=== PATIENT | female | born 2000 | race Caucasian/White ===

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

== ENCOUNTER 2021-12-29 18:56 | Emergency (ER) | payer OTHER ==
--- NOTE | 2021-12-29 19:02 | ERPHSYRPT ---
- History of Present Illness Time Seen by Provider: 12/29/21 19:02 Source: patient Exam Limitations: no limitations Physician History: This is a 21-year-old white female who [place] out [place] picking at weeds and then noticing in the next 1 to 2 days that she has had itchy skin lesions on her arms and legs. They were exposed to the elements while running through the [place]. Patient did not ingest any wheat. She did not see any types of bugs on her. However she has multiple skin lesions that are itching that she did scratch and some are now red and tender. She is not wheezing and denies shortness of breath. Timing/Duration: day(s) (Last couple of days) Quality: itchy Severity: moderate Location: extremities Possible Causes: other (Exposed to elements in a [place]) Allergies/Adverse Reactions: No Known Drug Allergies Allergy (Unverified 09/26/17 22:49) Travel Risk - International Travel Have you traveled outside of the country in past 3 weeks: No - Coronavirus Screening Are you exhibiting any of the following symptoms?: No Close contact with a COVID-19 positive Pt in past 14-21 Days: No - Review of Systems Constitutional: No Symptoms Eyes: No Symptoms Ears, Nose, & Throat: No Symptoms Respiratory: No Symptoms Cardiac: No Symptoms Abdominal/Gastrointestinal: No Symptoms Genitourinary Symptoms: No Symptoms Musculoskeletal: No Symptoms Skin: Cellulitis (Few small areas of cellulitis around eschars were patient was scratching her rash lesions), Rash Neurological: No Symptoms Psychological: No Symptoms Endocrine: No Symptoms Hematologic/Lymphatic: No Symptoms Immunological/Allergic: No Symptoms All Other Systems: Reviewed and Negative - Past Medical History Pertinent Past Medical History: Yes - Past Surgical History Past Surgical History: No - Social History Smoking Status: Former smoker Exposure to second hand smoke: No Drug Use: none Patient Lives Alone: No - Nursing Vital Signs Nursing Vital Signs: Initial Vital Signs Temperature 97.4 F 12/29/21 19:05 Pulse Rate 91 H 12/29/21 19:05 Respiratory Rate 18 12/29/21 19:05 Blood Pressure 125/83 12/29/21 19:05 O2 Sat by Pulse Oximetry 100 12/29/21 19:05 Pain Scale Pain Intensity 0 - Physical Exam General Appearance: no apparent distress, alert, anxiety Eye Exam: PERRL/EOMI, eyes nml inspection Ears, Nose, Throat Exam: normal ENT inspection, moist mucous membranes Neck Exam: normal inspection, non-tender, supple, full range of motion Respiratory Exam: normal breath sounds, lungs clear, airway intact, No chest tenderness, No respiratory distress Cardiovascular Exam: regular rate/rhythm, normal heart sounds, normal peripheral pulses Gastrointestinal/Abdomen Exam: No tenderness Pelvic Exam: not done Rectal Exam: not done Extremity Exam: normal inspection, normal range of motion, pelvis stable Neurologic Exam: alert, oriented x 3, cooperative, pipe layer helper II-XII nml as tested, normal mood/affect, nml cerebellar function, nml station & gait, sensation nml Skin Exam: other (Multiple distinct lesions of the skin bilateral upper and lower extremities. There is obvious excoriation sites and a few of these eschars have mild surrounding cellulitis present. There is no obvious abscess.) Lymphatic Exam: adenopathy SpO2 Interpretation: normal O2 Delivery: Room Air - Course Nursing assessment & vital signs reviewed: Yes Ordered Tests: Medication Summary Discontinued Medications Generic Name Dose Route Start Last Admin Trade Name Josue PRN Reason Stop Dose Admin Doxycycline Hyclate 100 mg 12/29/21 19:28 12/29/21 19:35 Doxycycline Hyclate 100 Mg Tablet PO 12/29/21 19:29 100 mg STAT ONE Administration Doxycycline Hyclate Confirm 12/29/21 19:33 Doxycycline Hyclate 100 Mg Tablet Administered 12/29/21 19:34 Dose 100 mg .ROUTE .STK-MED ONE Prednisone 20 mg 12/29/21 19:30 12/29/21 19:35 Prednisone 20 Mg Tablet PO 12/29/21 19:31 20 mg STAT ONE Administration Prednisone Confirm 12/29/21 19:33 Prednisone 20 Mg Tablet Administered 12/29/21 19:34 Dose 20 mg .ROUTE .STK-MED ONE - Progress Progress: unchanged Counseled pt/family regarding: diagnosis, need for follow-up - Departure Departure Disposition: Home Clinical Impression: Contact dermatitis Condition: Stable Critical Care Time: No Additional Instructions: Keep skin clean daily with soap and water daily. Follow up with primary provider for further management. Take medication as prescribed. Use the hydroxyzine prescription for control of itching instead of Benadryl. Prescriptions: Hydroxyzine HCl 25 mg [Atarax 25 mg] 25 mg PO Q6H PRN #12 tablet PRN Reason: Itching Prednisone 10 mg [Deltasone 10 mg] 10 mg PO TID #12 tablet Doxycycline Hyclate 100 mg [Vibramycin 100 MG] 100 mg PO BID #14 tab
[2021-12-29] MEDS ORDERED: Vibramycin 100 MG PO ONE (19:28)
[2021-12-29] MEDS ORDERED: DELTASONE 20 MG PO ONE (19:30)
[2021-12-29] MEDS ORDERED: DELTASONE 20 MG ONE (19:33)
[2021-12-29] MEDS ORDERED: Vibramycin 100 MG ONE (19:33)
[2021-12-29 20:03] VITALS: BP 126/83; PULSE 90; O2SAT 98
== END 2021-12-29 20:04 | disposition home or self-care (01) ==
LOC: ED 18:56
DX: L25.9 Unspecified contact dermatitis, unspecified cause (principal); Z79.52 Long term (current) use of systemic steroids
CPT/HCPCS: 99282; A9270-GY

== ENCOUNTER 2022-08-27 11:59 | Inpatient (IN) | payer OTHER ==
[2022-08-27 12:36] LABS: Absolute Neutrophil Ct (ANC) 8.54 x10^3/uL (1.4-6.9); BASOPHIL % 0.4 % (0.0-0.4); Basophil (Absolute #) 0.05 x10^3/uL (0-0.4); Eosinophil % 0.6 % (0.00-5.0); Eosinophil (Absolute #) 0.07 x10^3/uL (0-0.5); IMMATURE GRAN # 0.12 x10^3u/L (0.00-0.03); Lymphocyte (Absolute #) 2.73 x10^3/uL (1.0-4.6); Mean Cell Volume 90.9 fL (78-100); Mean Corpuscular Hgb Concent. 34.1 g/dL (32-36); Mean Platelet Volume 10.6 fL (7.5-11.0); Monocyte (Absolute #) 0.37 x10^3/uL (0.0-1.3); Monocytes % 3.1 % (0.0-12.0); Neutrophil % 71.9 % (36.0-66.0); Platelet Count 303 x10^3/uL (150-450); Red Blood Count 4.51 x10^6/uL (4.1-5.4); Red Cell Distribution Width 12.8 % (11.5-14.0); White Blood Count 11.9 x10^3/uL (4.0-10.5)
[2022-08-27] MEDS ORDERED: Sodium Chloride 100ML MINI-BAG PLUS 100 ML IV ONE (12:36)
[2022-08-27] MEDS ORDERED: Lactated Ringers 1,000 ML IV ONE ×2 (12:36→13:04)
[2022-08-27] MEDS ORDERED: OMNIPEN 2 GM*** 2 G in Sodium Chloride 100ML MINI-BAG PLUS 100 ML IV SCH (12:45)
[2022-08-27 12:54] LABS: ALBUMIN 3.2 g/dL (3.5-5.0); ALKALINE PHOSPHATASE 149 U/L (38-126); ANION GAP 12.9 MEQ/L (5-15); BLOOD UREA NITROGEN 12 mg/dL (7-17); CHLORIDE 106 mmol/L (98-107); Calcium 8.4 mg/dL (8.4-10.2); Carbon Dioxide 19 mmol/L (22-30); Creatinine 1 0.43 mg/dL (0.52-1.04); EST GLOMERULAR FILTRATION RATE > 60.0 ML/MIN; Glucose 80 mg/dL (74-106); Potassium 4.3 mmol/L (3.5-5.1); SGOT/AST 28 U/L (14-36); SGPT/ALT 19 U/L (0-35); SODIUM 133 mmol/L (137-145); Total Protein 6.9 g/dL (6.3-8.2)
[2022-08-27] MEDS ORDERED: Ephedrine Sulfate 50 MG/ML IV PRN (13:04)
[2022-08-27] MEDS ORDERED: OMNIPEN 2 GM*** 2 G in Sodium Chloride 100ML MINI-BAG PLUS 100 ML IV ONE (13:04)
[2022-08-27] MEDS ORDERED: XYLOCAINE 1% HCL 20 ML MDV IJ PRN (13:04)
[2022-08-27] MEDS ORDERED: FENTANYL 2 MCG-BUPIV 0.125%-NS 250 ML Epidur 250 ML EPIDURAL SCH (13:15)
[2022-08-27] MEDS ORDERED: Lactated Ringers 1,000 ML IV SCH (13:30)
[2022-08-27] MEDS ORDERED: PITOCIN 30 UNITS/ LR 500 ML 30 UNITS/500 ML PLAST..BAG IV SCH (13:30)
[2022-08-27 13:58] LABS: Amphetamine,Urine NEGATIVE (NEGATIVE); Barbiturate,Urine NEGATIVE (NEGATIVE); Benzodiazepine,Urine NEGATIVE (NEGATIVE); Cocaine,Urine NEGATIVE (NEGATIVE); Methadone,Urine NEGATIVE (NEGATIVE); Opiate,Urine NEGATIVE (NEGATIVE); PCP,Urine NEGATIVE (NEGATIVE)
[2022-08-27 14:09] LABS: ABO TYPING O; RH TYPING NEGATIVE; THC,Urine POSITIVE (NEGATIVE)
[2022-08-27 14:11] LABS: Antibody Screen POSITIVE (NEGATIVE)
[2022-08-27] MEDS ORDERED: BRETHINE 1 MG/ML SQ PRN (15:10)
[2022-08-27] MEDS: PITOCIN 30 UNITS/ LR 500 ML 30 UNITS/500 ML PLAST..BAG IV SCH ×2 (15:16→15:35)
[2022-08-27] MEDS ORDERED: OMNIPEN 1 GM*** 1 GM in Sodium Chloride 100ML MINI-BAG PLUS 100 ML IV SCH (17:15)
[2022-08-27] MEDS ORDERED: Mylicon 80MG PO PRN (20:15)
[2022-08-27] MEDS ORDERED: LANSINOH 40 GM TOP PRN (20:15)
[2022-08-27] MEDS ORDERED: Dermoplast Spray TP PRN (20:15)
[2022-08-27] MEDS ORDERED: TUCKS TP PRN (20:15)
[2022-08-27] MEDS ORDERED: Zofran 4 MG/2 ML VIAL IV PRN (20:21)
[2022-08-27] MEDS: TYLENOL EXTRA STRENGTH 500 MG PO PRN (21:09)
[2022-08-27] MEDS ORDERED: Docusate Sodium 100 MG PO SCH (22:00)
[2022-08-28] MEDS: MOTRIN 400 MG PO PRN ×2 (02:09→15:41)
[2022-08-28] MEDS: TYLENOL EXTRA STRENGTH 500 MG PO PRN ×2 (04:05→13:46)
[2022-08-28 04:53] LABS: Absolute Neutrophil Ct (ANC) 6.59 x10^3/uL (1.4-6.9); BASOPHIL % 0.4 % (0.0-0.4); Basophil (Absolute #) 0.04 x10^3/uL (0-0.4); Eosinophil % 1.4 % (0.00-5.0); Eosinophil (Absolute #) 0.15 x10^3/uL (0-0.5); Hematocrit 32.8 % (35-47); Hemoglobin 11.5 g/dL (12.0-16.0); IMMATURE GRAN # 0.08 x10^3u/L (0.00-0.03); IMMATURE GRAN % 0.7 % (0.00-0.4); Lymphocytes % 30.9 % (24.0-44.0); Mean Cell Volume 89.4 fL (78-100); Mean Corpuscular Hemoglobin 31.3 pg (26-32); Mean Corpuscular Hgb Concent. 35.1 g/dL (32-36); Mean Platelet Volume 10.1 fL (7.5-11.0); Monocyte (Absolute #) 0.74 x10^3/uL (0.0-1.3); Monocytes % 6.7 % (0.0-12.0); Neutrophil % 59.9 % (36.0-66.0); Platelet Count 235 x10^3/uL (150-450); Red Blood Count 3.67 x10^6/uL (4.1-5.4); Red Cell Distribution Width 12.8 % (11.5-14.0)
[2022-08-28] MEDS ORDERED: ZOLOFT 50 MG TABLET PO SCH (10:00)
[2022-08-28] MEDS ORDERED: FERREX 150 PO SCH (10:00)
--- NOTE | 2022-08-28 10:04 | PCM.NOTE ---
Date and Time: 08/28/22 1002 Subjective Assessment: ppd 1 sp pt resting in bed and doing well ambulating and tolerating diet vss afebrile abd; soft uterus; firm lochia; mild hgb; 11 a/p sp ppd 1 dc home tomorrow should fu in office in 3wks OBJECTIVE DATA Vital Signs: Vital Signs - 24 hr Temp Pulse Resp BP BP Pulse Ox 08/28/22 02:00 98.0 F 57 L 16 108/51 98 08/27/22 20:00 97.9 F 53 L 16 132/67 99 08/27/22 18:39 16 123/52 98 08/27/22 17:30 55 L 20 112/57 98 08/27/22 17:15 57 L 18 121/57 100 08/27/22 17:00 63 16 121/58 99 08/27/22 16:39 59 L 20 126/57 99 08/27/22 16:00 97.9 F 55 L 20 112/57 98 08/27/22 15:25 97.9 F 56 L 20 127/73 99 08/27/22 15:00 97.9 F 61 20 129/61 98 08/27/22 14:00 97.9 F 61 20 113/58 91 L 08/27/22 13:30 57 L 20 114/63 98 08/27/22 13:00 97.9 F 77 20 154/74 96 08/27/22 12:50 97.9 F 64 20 133/73 100 08/27/22 12:30 97.8 F 64 24 133/73 Pain Assessment - Last Documented Pain Intensity 7 Pain Scale Used 0-10 Pain Scale Intake and Output: Intake & Output 08/25/22 08/26/22 08/27/22 08/28/22 11:59 11:59 11:59 11:59 Weight 99.79 kg Lab Results: Lab Results-Last 24 Hours 08/27/22 08/27/22 08/27/22 Range/Units 12:30 12:30 12:30 WBC 11.9 H (4.0-10.5) x10^3/uL RBC 4.51 (4.1-5.4) x10^6/uL Hgb 14.0 (12.0-16.0) g/dL Hct 41.0 (35-47) % MCV 90.9 (78-100) fL MCH 31.0 (26-32) pg MCHC 34.1 (32-36) g/dL RDW 12.8 (11.5-14.0) % Plt Count 303 (150-450) x10^3/uL MPV 10.6 (7.5-11.0) fL Gran % 71.9 H (36.0-66.0) % Immature Gran % (Auto) 1.0 H (0.00-0.4) % Nucleat RBC Rel Count 0.0 (0.00-0.1) % Eos # (Auto) 0.07 (0-0.5) x10^3/uL Immature Gran # (Auto) 0.12 H (0.00-0.03) x10^3u/L Absolute Lymphs (auto) 2.73 (1.0-4.6) x10^3/uL Absolute Monos (auto) 0.37 (0.0-1.3) x10^3/uL Absolute Nucleated RBC 0.00 (0.00-0.01) x10^3u/L Lymphocytes % 23.0 L (24.0-44.0) % Monocytes % 3.1 (0.0-12.0) % Eosinophils % 0.6 (0.00-5.0) % Basophils % 0.4 (0.0-0.4) % Absolute Granulocytes 8.54 H (1.4-6.9) x10^3/uL Basophils # 0.05 (0-0.4) x10^3/uL Sodium 133 L (137-145) mmol/L Potassium 4.3 (3.5-5.1) mmol/L Chloride 106 (98-107) mmol/L Carbon Dioxide 19 L (22-30) mmol/L Anion Gap 12.9 (5-15) MEQ/L BUN 12 (7-17) mg/dL Creatinine 0.43 L (0.52-1.04) mg/dL Estimated GFR > 60.0 ML/MIN Glucose 80 (74-106) mg/dL POC Glucometer (74 to 106) mg/dL Hemoglobin A1c (4.5-6.0) % Calcium 8.4 (8.4-10.2) mg/dL Total Bilirubin 0.40 (0.2-1.3) mg/dL AST 28 (14-36) U/L ALT 19 (0-35) U/L Alkaline Phosphatase 149 H (38-126) U/L Serum Total Protein 6.9 (6.3-8.2) g/dL Albumin 3.2 L (3.5-5.0) g/dL Urine Opiates Level NEGATIVE (NEGATIVE) Ur Methadone NEGATIVE (NEGATIVE) Urine Barbiturates NEGATIVE (NEGATIVE) Ur Phencyclidine (PCP) NEGATIVE (NEGATIVE) Urine Amphetamine NEGATIVE (NEGATIVE) U Benzodiazepine Level NEGATIVE (NEGATIVE) Urine Cocaine NEGATIVE (NEGATIVE) Urine Marijuana (THC) POSITIVE (NEGATIVE) ABO Group Rh Factor Antibody Screen (NEGATIVE) 08/27/22 08/27/22 08/27/22 Range/Units 12:30 12:30 17:15 WBC (4.0-10.5) x10^3/uL RBC (4.1-5.4) x10^6/uL Hgb (12.0-16.0) g/dL Hct (35-47) % MCV (78-100) fL MCH (26-32) pg MCHC (32-36) g/dL RDW (11.5-14.0) % Plt Count (150-450) x10^3/uL MPV (7.5-11.0) fL Gran % (36.0-66.0) % Immature Gran % (Auto) (0.00-0.4) % Nucleat RBC Rel Count (0.00-0.1) % Eos # (Auto) (0-0.5) x10^3/uL Immature Gran # (Auto) (0.00-0.03) x10^3u/L Absolute Lymphs (auto) (1.0-4.6) x10^3/uL Absolute Monos (auto) (0.0-1.3) x10^3/uL Absolute Nucleated RBC (0.00-0.01) x10^3u/L Lymphocytes % (24.0-44.0) % Monocytes % (0.0-12.0) % Eosinophils % (0.00-5.0) % Basophils % (0.0-0.4) % Absolute Granulocytes (1.4-6.9) x10^3/uL Basophils # (0-0.4) x10^3/uL Sodium (137-145) mmol/L Potassium (3.5-5.1) mmol/L Chloride (98-107) mmol/L Carbon Dioxide (22-30) mmol/L Anion Gap (5-15) MEQ/L BUN (7-17) mg/dL Creatinine (0.52-1.04) mg/dL Estimated GFR ML/MIN Glucose (74-106) mg/dL POC Glucometer 71 L (74 to 106) mg/dL Hemoglobin A1c 4.47 L (4.5-6.0) % Calcium (8.4-10.2) mg/dL Total Bilirubin (0.2-1.3) mg/dL AST (14-36) U/L ALT (0-35) U/L Alkaline Phosphatase (38-126) U/L Serum Total Protein (6.3-8.2) g/dL Albumin (3.5-5.0) g/dL Urine Opiates Level (NEGATIVE) Ur Methadone (NEGATIVE) Urine Barbiturates (NEGATIVE) Ur Phencyclidine (PCP) (NEGATIVE) Urine Amphetamine (NEGATIVE) U Benzodiazepine Level (NEGATIVE) Urine Cocaine (NEGATIVE) Urine Marijuana (THC) (NEGATIVE) ABO Group O Rh Factor NEGATIVE Antibody Screen POSITIVE (NEGATIVE) 08/27/22 08/28/22 Range/Units 18:44 04:50 WBC 11.0 H (4.0-10.5) x10^3/uL RBC 3.67 L (4.1-5.4) x10^6/uL Hgb 11.5 L (12.0-16.0) g/dL Hct 32.8 L (35-47) % MCV 89.4 (78-100) fL MCH 31.3 (26-32) pg MCHC 35.1 (32-36) g/dL RDW 12.8 (11.5-14.0) % Plt Count 235 (150-450) x10^3/uL MPV 10.1 (7.5-11.0) fL Gran % 59.9 (36.0-66.0) % Immature Gran % (Auto) 0.7 H (0.00-0.4) % Nucleat RBC Rel Count 0.0 (0.00-0.1) % Eos # (Auto) 0.15 (0-0.5) x10^3/uL Immature Gran # (Auto) 0.08 H (0.00-0.03) x10^3u/L Absolute Lymphs (auto) 3.40 (1.0-4.6) x10^3/uL Absolute Monos (auto) 0.74 (0.0-1.3) x10^3/uL Absolute Nucleated RBC 0.00 (0.00-0.01) x10^3u/L Lymphocytes % 30.9 (24.0-44.0) % Monocytes % 6.7 (0.0-12.0) % Eosinophils % 1.4 (0.00-5.0) % Basophils % 0.4 (0.0-0.4) % Absolute Granulocytes 6.59 (1.4-6.9) x10^3/uL Basophils # 0.04 (0-0.4) x10^3/uL Sodium (137-145) mmol/L Potassium (3.5-5.1) mmol/L Chloride (98-107) mmol/L Carbon Dioxide (22-30) mmol/L Anion Gap (5-15) MEQ/L BUN (7-17) mg/dL Creatinine (0.52-1.04) mg/dL Estimated GFR ML/MIN Glucose (74-106) mg/dL POC Glucometer 76 (74 to 106) mg/dL Hemoglobin A1c (4.5-6.0) % Calcium (8.4-10.2) mg/dL Total Bilirubin (0.2-1.3) mg/dL AST (14-36) U/L ALT (0-35) U/L Alkaline Phosphatase (38-126) U/L Serum Total Protein (6.3-8.2) g/dL Albumin (3.5-5.0) g/dL Urine Opiates Level (NEGATIVE) Ur Methadone (NEGATIVE) Urine Barbiturates (NEGATIVE) Ur Phencyclidine (PCP) (NEGATIVE) Urine Amphetamine (NEGATIVE) U Benzodiazepine Level (NEGATIVE) Urine Cocaine (NEGATIVE) Urine Marijuana (THC) (NEGATIVE) ABO Group Rh Factor Antibody Screen (NEGATIVE) Assessment/Plan (1) Vaginal delivery Current Visit: Yes Status: Acute Code(s): O80 - ENCOUNTER FOR FULL-TERM UNCOMPLICATED DELIVERY
--- NOTE | 2022-08-28 10:07 | PCM.DS ---
Discharge Summary Date of Admission: 08/27/22 13:06 Admitting Physician: CONRADO JUAREZ DO Consults: Consults on Case 08/27/22 13:07 Notify Anesthesia Provider PRN 08/27/22 14:48 Navigation ONCE 08/27/22 20:16 Notify Physician ROUTINE Primary Care Provider: NO FAMILY DOCTOR Allergies Allergies No Known Drug Allergies Allergy (Verified 08/27/22 13:34) Hospital Summary - Hospital Course Hospital Course: pt admitted on august 27 at 36 4/7 wks gestation who presented in labor and was diagnosed to be 6-7 cm on admission. pt had arom and subsequently delivered in the afternoon live baby boy without complication. pt had limited care with 3 office visits throughout her care. pt did receive one dose of iv antibiotic for gbs prophylaxis. during period did well and did receive her rhogam and had stable hgb at 11. pt advised to fu in office in 3 wks for care. pt was give zoloft in hospital for depression and states will continue taking upon discharge as she already has it at home. all questions answered to her satisfaction. - Vitals & Intake/Output Vital Signs: Vital Signs Temperature 98.0 F 08/28/22 02:00 Pulse Rate 57 L 08/28/22 02:00 Respiratory Rate 16 08/28/22 02:00 Blood Pressure 108/51 08/28/22 02:00 O2 Sat by Pulse Oximetry 98 08/28/22 02:00 Intake & Output: Intake & Output 08/25/22 08/26/22 08/27/22 08/28/22 11:59 11:59 11:59 11:59 Weight 99.79 kg - Lab Result Diagrams: 08/28/22 04:50 08/27/22 12:30 Lab Results-Last 24 Hrs: Lab Results-Last 24 Hours 08/27/22 08/27/22 08/27/22 Range/Units 12:30 12:30 12:30 WBC 11.9 H (4.0-10.5) x10^3/uL RBC 4.51 (4.1-5.4) x10^6/uL Hgb 14.0 (12.0-16.0) g/dL Hct 41.0 (35-47) % MCV 90.9 (78-100) fL MCH 31.0 (26-32) pg MCHC 34.1 (32-36) g/dL RDW 12.8 (11.5-14.0) % Plt Count 303 (150-450) x10^3/uL MPV 10.6 (7.5-11.0) fL Gran % 71.9 H (36.0-66.0) % Immature Gran % (Auto) 1.0 H (0.00-0.4) % Nucleat RBC Rel Count 0.0 (0.00-0.1) % Eos # (Auto) 0.07 (0-0.5) x10^3/uL Immature Gran # (Auto) 0.12 H (0.00-0.03) x10^3u/L Absolute Lymphs (auto) 2.73 (1.0-4.6) x10^3/uL Absolute Monos (auto) 0.37 (0.0-1.3) x10^3/uL Absolute Nucleated RBC 0.00 (0.00-0.01) x10^3u/L Lymphocytes % 23.0 L (24.0-44.0) % Monocytes % 3.1 (0.0-12.0) % Eosinophils % 0.6 (0.00-5.0) % Basophils % 0.4 (0.0-0.4) % Absolute Granulocytes 8.54 H (1.4-6.9) x10^3/uL Basophils # 0.05 (0-0.4) x10^3/uL Sodium 133 L (137-145) mmol/L Potassium 4.3 (3.5-5.1) mmol/L Chloride 106 (98-107) mmol/L Carbon Dioxide 19 L (22-30) mmol/L Anion Gap 12.9 (5-15) MEQ/L BUN 12 (7-17) mg/dL Creatinine 0.43 L (0.52-1.04) mg/dL Estimated GFR > 60.0 ML/MIN Glucose 80 (74-106) mg/dL POC Glucometer (74 to 106) mg/dL Hemoglobin A1c (4.5-6.0) % Calcium 8.4 (8.4-10.2) mg/dL Total Bilirubin 0.40 (0.2-1.3) mg/dL AST 28 (14-36) U/L ALT 19 (0-35) U/L Alkaline Phosphatase 149 H (38-126) U/L Serum Total Protein 6.9 (6.3-8.2) g/dL Albumin 3.2 L (3.5-5.0) g/dL Urine Opiates Level NEGATIVE (NEGATIVE) Ur Methadone NEGATIVE (NEGATIVE) Urine Barbiturates NEGATIVE (NEGATIVE) Ur Phencyclidine (PCP) NEGATIVE (NEGATIVE) Urine Amphetamine NEGATIVE (NEGATIVE) U Benzodiazepine Level NEGATIVE (NEGATIVE) Urine Cocaine NEGATIVE (NEGATIVE) Urine Marijuana (THC) POSITIVE (NEGATIVE) ABO Group Rh Factor Antibody Screen (NEGATIVE) 08/27/22 08/27/22 08/27/22 Range/Units 12:30 12:30 17:15 WBC (4.0-10.5) x10^3/uL RBC (4.1-5.4) x10^6/uL Hgb (12.0-16.0) g/dL Hct (35-47) % MCV (78-100) fL MCH (26-32) pg MCHC (32-36) g/dL RDW (11.5-14.0) % Plt Count (150-450) x10^3/uL MPV (7.5-11.0) fL Gran % (36.0-66.0) % Immature Gran % (Auto) (0.00-0.4) % Nucleat RBC Rel Count (0.00-0.1) % Eos # (Auto) (0-0.5) x10^3/uL Immature Gran # (Auto) (0.00-0.03) x10^3u/L Absolute Lymphs (auto) (1.0-4.6) x10^3/uL Absolute Monos (auto) (0.0-1.3) x10^3/uL Absolute Nucleated RBC (0.00-0.01) x10^3u/L Lymphocytes % (24.0-44.0) % Monocytes % (0.0-12.0) % Eosinophils % (0.00-5.0) % Basophils % (0.0-0.4) % Absolute Granulocytes (1.4-6.9) x10^3/uL Basophils # (0-0.4) x10^3/uL Sodium (137-145) mmol/L Potassium (3.5-5.1) mmol/L Chloride (98-107) mmol/L Carbon Dioxide (22-30) mmol/L Anion Gap (5-15) MEQ/L BUN (7-17) mg/dL Creatinine (0.52-1.04) mg/dL Estimated GFR ML/MIN Glucose (74-106) mg/dL POC Glucometer 71 L (74 to 106) mg/dL Hemoglobin A1c 4.47 L (4.5-6.0) % Calcium (8.4-10.2) mg/dL Total Bilirubin (0.2-1.3) mg/dL AST (14-36) U/L ALT (0-35) U/L Alkaline Phosphatase (38-126) U/L Serum Total Protein (6.3-8.2) g/dL Albumin (3.5-5.0) g/dL Urine Opiates Level (NEGATIVE) Ur Methadone (NEGATIVE) Urine Barbiturates (NEGATIVE) Ur Phencyclidine (PCP) (NEGATIVE) Urine Amphetamine (NEGATIVE) U Benzodiazepine Level (NEGATIVE) Urine Cocaine (NEGATIVE) Urine Marijuana (THC) (NEGATIVE) ABO Group O Rh Factor NEGATIVE Antibody Screen POSITIVE (NEGATIVE) 08/27/22 08/28/22 Range/Units 18:44 04:50 WBC 11.0 H (4.0-10.5) x10^3/uL RBC 3.67 L (4.1-5.4) x10^6/uL Hgb 11.5 L (12.0-16.0) g/dL Hct 32.8 L (35-47) % MCV 89.4 (78-100) fL MCH 31.3 (26-32) pg MCHC 35.1 (32-36) g/dL RDW 12.8 (11.5-14.0) % Plt Count 235 (150-450) x10^3/uL MPV 10.1 (7.5-11.0) fL Gran % 59.9 (36.0-66.0) % Immature Gran % (Auto) 0.7 H (0.00-0.4) % Nucleat RBC Rel Count 0.0 (0.00-0.1) % Eos # (Auto) 0.15 (0-0.5) x10^3/uL Immature Gran # (Auto) 0.08 H (0.00-0.03) x10^3u/L Absolute Lymphs (auto) 3.40 (1.0-4.6) x10^3/uL Absolute Monos (auto) 0.74 (0.0-1.3) x10^3/uL Absolute Nucleated RBC 0.00 (0.00-0.01) x10^3u/L Lymphocytes % 30.9 (24.0-44.0) % Monocytes % 6.7 (0.0-12.0) % Eosinophils % 1.4 (0.00-5.0) % Basophils % 0.4 (0.0-0.4) % Absolute Granulocytes 6.59 (1.4-6.9) x10^3/uL Basophils # 0.04 (0-0.4) x10^3/uL Sodium (137-145) mmol/L Potassium (3.5-5.1) mmol/L Chloride (98-107) mmol/L Carbon Dioxide (22-30) mmol/L Anion Gap (5-15) MEQ/L BUN (7-17) mg/dL Creatinine (0.52-1.04) mg/dL Estimated GFR ML/MIN Glucose (74-106) mg/dL POC Glucometer 76 (74 to 106) mg/dL Hemoglobin A1c (4.5-6.0) % Calcium (8.4-10.2) mg/dL Total Bilirubin (0.2-1.3) mg/dL AST (14-36) U/L ALT (0-35) U/L Alkaline Phosphatase (38-126) U/L Serum Total Protein (6.3-8.2) g/dL Albumin (3.5-5.0) g/dL Urine Opiates Level (NEGATIVE) Ur Methadone (NEGATIVE) Urine Barbiturates (NEGATIVE) Ur Phencyclidine (PCP) (NEGATIVE) Urine Amphetamine (NEGATIVE) U Benzodiazepine Level (NEGATIVE) Urine Cocaine (NEGATIVE) Urine Marijuana (THC) (NEGATIVE) ABO Group Rh Factor Antibody Screen (NEGATIVE) Final Diagnosis/Problem List - Final Discharge Diagnosis/Problem (1) Vaginal delivery Current Visit: Yes Status: Acute Code(s): O80 - ENCOUNTER FOR FULL-TERM UNCOMPLICATED DELIVERY - Discharge Disposition: Home, Self-Care Condition: Stable Prescriptions: No Action Sertraline HCl 50 mg [Zoloft 50 mg Tablet] 50 mg PO DAILY Follow up with: DOCTOR,NO FAMILY [Primary Care Provider] - CONRADO JUAREZ DO [ACTIVE STAFF] - 3 weeks
[2022-08-28 11:14] LABS: RPR Non Reactive (Non Reactive)
[2022-08-28 20:29] VITALS: BP 110/56; PULSE 62; O2SAT 97
== END 2022-08-28 21:30 | disposition home or self-care (01) | DRG 807 ==
LOC: OB 11:59 → OBSVTOIN 13:06 → OB 13:06
PROVIDERS: ADMIT Obstetrics & Gynecology; ATTEND Obstetrics & Gynecology
PROC: 10E0XZZ Delivery of Products of Conception, External Approach (ICD-10-PCS; principal; 2022-08-27)
DX: O80 Encounter for full-term uncomplicated delivery (principal); Z37.0 Single live birth; Z3A.36 36 weeks gestation of pregnancy; Z20.828 Contact with and (suspected) exposure to other viral communicable diseases
CPT/HCPCS: 36415; 59409; 80053; 80307; 82947; 83036; 85025; 86592; 86850; 86870; 86900; 86901; J0290; J2405; J2590; A9270-GY

== ENCOUNTER 2023-04-10 09:47 | Emergency (ER) | payer OTHER ==
[2023-04-10 10:10] VITALS: RESP 16; TEMP 97.4
--- NOTE | 2023-04-10 10:56 | ERPHSYRPT ---
- History of Present Illness Time Seen by Provider: 04/10/23 10:00 Source: patient Exam Limitations: no limitations Patient Subjective Stated Complaint: Pt reports she went to [facility] in [place] on 03/27/23 due to vaginal bleeding since 03/18/23 where she had a positive pregn christine test. [facility] sent patient to [facility] on 03/27/23 where she tested positive for gonorrhea and chlamydia. She was given rocephin 500mg IM on 03/27/23 by [facility] and told to follow up with ER or roof technician due to the bleeding to be sure it is okay to be prescribed doxycycline 100mg. Pt states she did not follow up, wanted to wait until after the holidays. Pt then elected to come to ED today, unsure of gestational age, denies any cramping but states previously when testing was completed she was having severe cramps and passing blood clots. Pt states bleeding is now light when she wipes. Triage Nursing Assessment: Pt alert and oriented x3. Respirations easy/nonlabored. Skin w/p/d. Accompanied by sister. Abdomen soft/round. Physician History: 22-year-old female presents to our ED for a pelvic ultrasound to assess . Patient went to [facility] on 03/27/2023 as she was advised by her partner that he tested positive for an STI. Patient reported to the clinic that she was experiencing cramping. Patient had a positive . She was found to have gonorrhea and chlamydia. Patient was treated with R ocephin for the gonorrhea. The chlamydia was reportedly not treated for unclear reasons. Patient is here approximately 17 days later for pelvic cramping. Patient reports she is as per report from the previous clinic. She also reports that she has untreated chlamydia. No other complaints. No trauma no fever. No urinary complaints. Patient states that her urine tested negative for UTI on 03/27/2023. Patient sisters at the bedside. They voiced no other complaints or concerns at this time. Portions of this note were created with voice recognition technology. There may be grammatical, spelling, punctuation or sound alike errors Timing/Duration: day(s) (17 days) Severity: moderate Modifying Factors: Improves With: nothing Associated Symptoms: denies symptoms Allergies/Adverse Reactions: No Known Drug Allergies Allergy (Verified 12/27/23 10:05) Home Medications: No Reportable Medications [No Reported Medications] 04/10/23 [History] Hx Tetanus, Diphtheria Vaccination/Date Given: Yes Hx Influenza Vaccination/Date Given: No Travel Risk - International Travel Have you traveled outside of the country in past 3 weeks: No - Coronavirus Screening Are you exhibiting any of the following symptoms?: No Close contact with a COVID-19 positive Pt in past 14-21 Days: No - Vaccine Status Have you recieved a Covid-19 vaccination: No - Review of Systems Constitutional: No Symptoms, No Fever, No Chills Eyes: No Symptoms Ears, Nose, & Throat: No Symptoms Respiratory: No Symptoms, No Cough, No Dyspnea Cardiac: No Symptoms, No Chest Pain, No Edema, No Syncope Abdominal/Gastrointestinal: No Symptoms, No Abdominal Pain, No Nausea, No Vomiting, No Diarrhea Genitourinary Symptoms: No Symptoms, No Dysuria Musculoskeletal: No Symptoms, No Back Pain, No Neck Pain Skin: No Symptoms, No Rash Neurological: No Symptoms, No Dizziness, No Focal Weakness, No Sensory Changes Psychological: No Symptoms Endocrine: No Symptoms Hematologic/Lymphatic: No Symptoms Immunological/Allergic: No Symptoms All Other Systems: Reviewed and Negative - Past Medical History Pertinent Past Medical History: Yes Neurological History: No Pertinent History ENT History: No Pertinent History Cardiac History: No Pertinent History Respiratory History: No Pertinent History Endocrine Medical History: No Pertinent History Musculoskeletal History: No Pertinent History GI Medical History: No Pertinent History History: No Pertinent History Psycho-Social History: Anxiety, Bipolar, Depression Female Reproductive Disorders: No Pertinent History - Past Surgical History Past Surgical History: Yes Cardiac: No Pertinent History Gastrointestinal: No Pertinent History Genitourinary: No Pertinent History Musculoskeletal: No Pertinent History Female Surgical History: No Pertinent History - Social History Smoking Status: Current every day smoker How long have you smoked: 10 years Exposure to second hand smoke: Yes Drug Use: marijuana, other Patient Lives Alone: No - Female History Hx Last Menstrual Period: unknown Hx Now: Yes Gestational Age: ? - Nursing Vital Signs Nursing Vital Signs: Initial Vital Signs Temperature 97.4 F 04/10/23 09:55 Pulse Rate 95 H 04/10/23 09:55 Respiratory Rate 16 04/10/23 09:55 Blood Pressure 127/74 04/10/23 09:55 O2 Sat by Pulse Oximetry 98 04/10/23 09:55 Pain Scale Pain Intensity 0 - Physical Exam General Appearance: no apparent distress, alert Eye Exam: PERRL/EOMI, eyes nml inspection Ears, Nose, Throat Exam: normal ENT inspection, TMs normal, pharynx normal, moist mucous membranes Neck Exam: normal inspection, non-tender, supple, full range of motion Respiratory Exam: normal breath sounds, lungs clear, airway intact, No respira tory distress Cardiovascular Exam: regular rate/rhythm, normal heart sounds, normal peripheral pulses Gastrointestinal/Abdomen Exam: soft, normal bowel sounds, No tenderness, No mass Back Exam: normal inspection, normal range of motion, No CVA tenderness, No vertebral tenderness Extremity Exam: normal inspection, normal range of motion, pelvis stable Neurologic Exam: alert, oriented x 3, cooperative, normal mood/affect, nml cerebellar function, nml station & gait, sensation nml, No motor deficits Skin Exam: normal color, warm, dry, No rash Lymphatic Exam: No adenopathy SpO2 Interpretation: normal SpO2: 98 O2 Delivery: Room Air - Course Nursing assessment & vital signs reviewed: Yes - Radiology Ultrasound Exam Venous Lower Extremity Ultrasound: tele radiology report (Negative for ectopic negative for intrauterine findings) Ordered Tests: Active Orders 24 hr Category Date Time Status OB <14 WKS 1ST GESTATION [US] Stat Exams 04/10/23 10:46 Completed HCG, Quantitative (Inhouse) Stat Lab 04/10/23 10:48 Completed Medication Summary Discontinued Medications Generic Name Dose Route Start Last Admin Trade Name Sameerq PRN Reason Stop Dose Admin Azithromycin 1,000 mg 04/10/23 11:53 04/10/23 12:06 Azithromycin 250 Mg Tablet PO 04/10/23 11:54 1,000 mg STAT ONE Administration Azithromycin Confirm 04/10/23 12:03 Azithromycin 250 Mg Tablet Administered 04/10/23 12:04 Dose 1,000 mg .ROUTE .STK-MED ONE Rho Immune Globulin 300 mcg 04/10/23 12:05 Rho(D) Immune Globulin 300 Mcg/Syr Ml IM 04/10/23 12:06 ONCE STA Lab/Rad Data: Laboratory Results 04/10/23 04/10/23 Range/Units 10:48 10:47 Beta HCG, Quant 13.35 mIU/ml ABO Group O Rh Factor NEGATIVE Antibody Screen NEGATIVE (NEGATIVE) - Progress Progress: improved Progress Note: Patient is a 22-year-old female presents to our ED for evaluation of vaginal bleeding. Patient was previously diagnosed with a and gonorrhea chlamydia. Patient was treated for gonorrhea but not chlamydia. Patient received 500 mg IM dose of Rocephin. No azithromycin or doxycycline administered for unclear reasons. Patient is here due to experiencing vaginal clotting that has since improved to light pink spotting. Physical exam ess entially nonremarkable. Ultrasound negative for ectopic. No gestational sac observed. Patient hCG is 13.35. Patient is O-. Patient received a dose of RhoGAM. I spoke to Dr. Herrera at 11:45 AM regarding the findings. He advised azithromycin 1 g p.o. which was administered. He will follow-up with our patient on an outpatient basis for repeat beta hCG. However in light of patient's low hCG after positive diagnosis 17 days ago it is likely that patient is no longer . However confirmatory repeat hCG will need to be done in the next few days. Patient states she is ready for discharge. She voices no other complaints or concerns at this time. Portions of this note were created with voice recognition technology. There may be grammatical, spelling, punctuation or sound alike errors Complexity problem addressed is moderate acute complicated No critical care time Complex of data reviewed and analyzed is extensive. Test ordered test reviewed. Results analyzed and correlated clinically with history and physical exam. Management discussed with Dr. Amaro at 11:45 AM Risk of complication and a risk of morbidity/mortality of patient management is moderate. Patient will require ongoing outpatient management. Patient will follow-up with their ASSISTANT TO THE DIRECTOR physician for evaluation. Vital stable. Time spent to discharge patient is approximately 15 minutes. Plan of care established for shared decision making. No social determinants of health present impede follow-up. Portions of this note were created with voice recognition technology. There may be grammatical, spelling, punctuation or sound alike errors 04/10/23 12:12 Counseled pt/family regarding: lab results, diagnosis, need for follow-up, rad results - Departure Departure Disposition: Home Clinical Impression: STI (sexually transmitted infection), Vaginal bleeding Condition: Stable Critical Care Time: No Referrals: NAHUN WATTERS, TRANSCRIBING MACHINE OPERATOR [Primary Care Provider] - Follow up/PCP as directed Additional Instructions: Discharge/Care Plan MIGUELJOHNOCONNORETHAN CHEN was seen on 04/10/23 in the Emergency Room. The patient was counseled regarding Diagnosis,Lab results, Imaging studies, need for follow up and when to return to the Emergency Room. Prescriptions given: Discharge Note I have spoken with the patient and/or caregivers. I have explained the patient's condition, diagnosis and treatment plan based on the information available to me at this time. I have answered the patient's and/or caregiver's questions and addressed any concerns. The patient and/or caregivers have as good understanding of the patient's diagnosis, condition and treatment plan as can be expected at this point. The vital signs have been stable. The patient's condition is stable and appropriate for discharge from the emergency department. The patient will pursue further outpatient evaluation with the primary care physician or other designated or consulting physician as outlined in the discharge instructions. The patient and/or caregivers are agreeable to this plan of care and follow-up instructions have been explained in detail. The patient and/or caregivers have received these instruction. The patient/and or caregivers are aware that any significant change in condition or worsening of symptoms should prompt an immediate return to this or the closest emergency department or call 911.
--- NOTE | 2023-04-10 11:51 | XRAY ---
Indication: Cramping. Two-dimensional transvaginal early OB ultrasound performed. Comparison: None for this . Retroflexed uterus without focal solid/cystic uterine mass. No intrauterine or ectopic gestational sac/ pole/ heart tones. Left and right ovaries demonstrates normal perfusion and follicular cysts. Impression: Negative for intrauterine/ectopic .
[2023-04-10] MEDS ORDERED: Zithromax 250 MG TABLET PO ONE (11:53)
[2023-04-10 11:54] LABS: ABO TYPING O; Antibody Screen NEGATIVE (NEGATIVE); RH TYPING NEGATIVE
[2023-04-10] MEDS ORDERED: Zithromax 250 MG TABLET ONE (12:03)
[2023-04-10 12:05] VITALS: BP 106/73
[2023-04-10] MEDS ORDERED: Rhogam Plus 300 MCG IM STA (12:05)
[2023-04-10 12:17] VITALS: O2SAT 98
[2023-04-10 12:47] VITALS: PULSE 81
== END 2023-04-10 12:40 | disposition home or self-care (01) ==
LOC: ED 09:47
DX: A64 Unspecified sexually transmitted disease (principal); N93.9 Abnormal uterine and vaginal bleeding, unspecified; R10.2 Pelvic and perineal pain; Z28.310 Unvaccinated for COVID-19; Z72.0 Tobacco use
CPT/HCPCS: 36415; 76801; 84702; 86850; 86900; 86901; 96372; 99283; J2790; A9270-GY

== ENCOUNTER 2023-04-26 14:53 | Emergency (ER) | payer OTHER ==
--- NOTE | 2023-04-26 14:56 | ERPHSYRPT ---
- History of Present Illness Time Seen by Provider: 04/26/23 14:56 Source: patient Exam Limitations: no limitations Physician History: This is an overweight 22-year-old white female patient of nurse practitioner Amelia who presents with midthoracic level right side pain with movement. She describes that pain as very sharp and stabbing-like. She did not fall. She has no history of recent trauma to the area. Patient did state that at the end of March 2023 she did have a miscarriage. Patient does not have chest pain. She is not short of breath. She has no known drug allergies and she takes no medications chronically. And her history is listed as having anxiety, depression and bipolar disorder. Timing/Duration: yesterday Method of Injury: other (No fall or trauma) Quality: sharp, stabbing Back Pain Location: T-spine, paraspinous muscles (Right side) Severity of Pain-Max: moderate Severity of Pain-Current: moderate Modifying Factors: Improves With: immobilization (Resolves), movement (Her symptoms) Associated Symptoms: No urinary incontinence, No loss of bowel control, No numbness in legs/feet, No weakness, No sensory/motor loss, No tingling in legs/feet, No lower back pain Previous symptoms: no prior history, no recent treatment Allergies/Adverse Reactions: No Known Drug Allergies Allergy (Verified 04/10/23 10:05) Hx Tetanus, Diphtheria Vaccination/Date Given: Yes Hx Influenza Vaccination/Date Given: No Travel Risk - International Travel Have you traveled outside of the country in past 3 weeks: No - Coronavirus Screening Are you exhibiting any of the following symptoms?: No Close contact with a COVID-19 positive Pt in past 14-21 Days: No - Vaccine Status Have you recieved a Covid-19 vaccination: No - Review of Systems Constitutional: No Symptoms Eyes: No Symptoms Ears, Nose, & Throat: No Symptoms Respiratory: No Symptoms Cardiac: No Symptoms Abdominal/Gastrointestinal: No Symptoms Genitourinary Symptoms: No Symptoms Musculoskeletal: Back Pain, No Fall, No Injury Skin: No Symptoms Neurological: No Symptoms Psychological: No Symptoms Endocrine: No Symptoms Hematologic/Lymphatic: No Symptoms Immunological/Allergic: No Symptoms All Other Systems: Reviewed and Negative - Past Medical History Pertinent Past Medical History: Yes Neurological History: No Pertinent History ENT History: No Pertinent History Cardiac History: No Pertinent History Respiratory History: No Pertinent History Endocrine Medical History: No Pertinent History Musculoskeletal History: No Pertinent History GI Medical History: No Pertinent History History: No Pertinent History Psycho-Social History: Anxiety, Bipolar, Depression Female Reproductive Disorders: No Pertinent History - Past Surgical History Past Surgical History: Yes Cardiac: No Pertinent History Gastrointestinal: No Pertinent History Genitourinary: No Pertinent History Musculoskeletal: No Pertinent History Female Surgical History: No Pertinent History - Social History Smoking Status: Current every day smoker How long have you smoked: 10 years Exposure to second hand smoke: Yes Drug Use: marijuana, other Patient Lives Alone: No - Nursing Vital Signs Nursing Vital Signs: Initial Vital Signs Temperature 98.3 F 04/26/23 15:00 Pulse Rate 111 H 04/26/23 15:00 Respiratory Rate 20 04/26/23 15:00 Blood Pressure 101/65 04/26/23 15:00 O2 Sat by Pulse Oximetry 99 04/26/23 15:00 Pain Scale Pain Intensity [Medial Back] 8 Pain Intensity 0 - Physical Exam General Appearance: no apparent distress, alert, anxiety Eye Exam: PERRL/EOMI, eyes nml inspection Ears, Nose, Throat Exam: normal ENT inspection, moist mucous membranes Neck Exam: normal inspection, non-tender, supple, full range of motion Respiratory Exam: airway intact, No chest tenderness, No respiratory distress Gastrointestinal Exam: No tenderness Pelvic Exam: not done Rectal Exam: not done Extremity Exam: normal inspection, pelvis stable, limited range of motion (Secondary to right of midline thoracic level pain with movement) Neurologic Exam: alert, oriented x 3, cooperative, health counselor II-XII nml as tested, normal mood/affect, nml cerebellar function, nml station & gait, sensation nml Skin Exam: normal color, warm, dry Lymphatic Exam: No adenopathy SpO2 Interpretation: normal O2 Delivery: Room Air - Course Nursing assessment & vital signs reviewed: Yes Ordered Tests: Active Orders 24 hr Category Date Time Status HCG QUALITATIVE, URINE Stat Lab 04/26/23 15:35 Completed UA W/RFX UR CULTURE Stat Lab 04/26/23 15:35 Completed Medication Summary Discontinued Medications Generic Name Dose Route Start Last Admin Trade Name Freq PRN Reason Stop Dose Admin Methylprednisolone Sodium 0 mg 04/26/23 15:58 04/26/23 16:06 Succinate 125 mg/ Sterile IM 04/26/23 15:59 125 mg Water 2 ml STAT ONE Administration Methylprednisolone Sodium Succinate Confirm 04/26/23 16:02 Methylprednis Sod Succ 125 Mg/2 Ml Vial Administered 04/26/23 16:03 Dose 125 mg .ROUTE .STK-MED ONE Orphenadrine Citrate 60 mg 04/26/23 15:58 04/26/23 16:06 Orphenadrine Citrate 60 Mg/2 Ml Vial IM 04/26/23 15:59 60 mg STAT ONE Administration Orphenadrine Citrate Confirm 04/26/23 16:02 Orphenadrine Citrate 60 Mg/2 Ml Vial Administered 04/26/23 16:03 Dose 60 mg .ROUTE .STK-MED ONE Oxycodone/Acetaminophen 1 tab 04/26/23 15:57 04/26/23 16:04 Oxycodone Hcl/Apap 5 Mg/325 Mg Tablet PO 04/26/23 15:58 1 tab STAT STA Administration Oxycodone/Acetaminophen Confirm 04/26/23 16:02 Oxycodone Hcl/Apap 5 Mg/325 Mg Tablet Administered 04/26/23 16:03 Dose 1 tab .ROUTE .STK-MED ONE Sterile Water Confirm 04/26/23 16:02 Water For Injection,Sterile 10 Ml Vial Administered 04/26/23 16:03 Dose 10 ml IJ .STK-MED ONE Lab/Rad Data: Laboratory Results 04/26/23 04/26/23 Range/Units 15:35 15:35 Urine Color Dark Yellow A (Yellow) Urine Appearance Cloudy A (Clear) Urine pH 5.5 (4.6-8.0) Ur Specific [place] 1.025 (1.005-1.030) Urine Protein 30 (Negative) Urine Glucose (UA) Negative (Negative) mg/dL Urine Ketones 15 A (Negative) Urine Blood Negative (Negative) Urine Nitrite Negative (Negative) Urine Bilirubin Negative (Negative) Urine Urobilinogen 0.2 (0.2) mg/dL Ur Leukocyte Esterase Negative (Negative) U Hyaline Cast (Auto) 0-2 (0-2) /LPF Urine Microscopic RBC 0-2 (0-5) /HPF Urine Microscopic WBC 0-2 (0-5) /HPF Ur Epithelial Cells Rare (None Seen) /HPF Urine Bacteria None Seen (None Seen) /HPF Urine Culture Reflexed NO (NO) Urine HCG, Qual NEGATIVE (NEGATIVE) - Progress Progress: improved, pain not gone completely, re-examined Progress Note: 04/26/23 16:04 This patient's medical issue is 1 of low complexity. The level of complexity and the workup performed is based on review of the patient's past medical history, review of the patient's medication list, review of the patient's drug allergy list, history of present illness and physical findings on examination. The workup in this patient includes a urinalysis, urine test. If these are negative for and or urinary tract infection we will treat her as if she has back pain. If there is a significant amount of blood in her urine we may proceed with CAT scan of the abdomen pelvis to evaluate for ureterolithiasis. 04/26/23 16:19 I interpreted the patient's lab results. Patient does not have an acute, emergent medical issue based on her laboratory data. Counseled pt/family regarding: lab results, diagnosis, need for follow-up Medical Desision Making - Independent Historian Additional History obtained from: Relative/friend - Diagnostic Testing Diagnostic test were ordered, analyzed, and reviewed by me: Yes - Risk of complications The pt has a mod risk of morbidity or mortality based on: Need for prescription drug management - Departure Departure Disposition: Home Clinical Impression: Back strain Condition: Stable Critical Care Time: No Referrals: NAHUN WATTERS NP [Primary Care Provider] - Follow up/PCP as directed Additional Instructions: Drink plenty fluids. Take your medications as prescribed. Call your primary care provider on 04/29/2023, to make arrangements for follow-up appointment for further evaluation and management. Prescriptions: Prednisone 10 mg [Deltasone 10 mg] 10 mg PO TID #12 tablet Orphenadrine Citrate 100 mg [Norflex 100 MG Tablet] 100 mg PO BID #10 tab
[2023-04-26 15:06] VITALS: RESP 20; TEMP 98.3
[2023-04-26 15:54] LABS: HCG URINE TEST NEGATIVE (NEGATIVE)
[2023-04-26] MEDS ORDERED: PERCOCET TABLET 5/325MG PO STA (15:57)
[2023-04-26] MEDS ORDERED: solu-MEDROL 125 MG, Sterile H2O 10 ml 2 ML IM ONE ×2 (15:58)
[2023-04-26] MEDS ORDERED: Norflex 60 MG/2 ML IM ONE (15:58)
[2023-04-26] MEDS ORDERED: Sterile H2O 10 ml IJ ONE (16:02)
[2023-04-26] MEDS ORDERED: solu-MEDROL ONE (16:02)
[2023-04-26] MEDS ORDERED: PERCOCET TABLET 5/325MG ONE (16:02)
[2023-04-26] MEDS ORDERED: Norflex 60 MG/2 ML ONE (16:02)
[2023-04-26 16:11] LABS: Appearance Cloudy (Clear); Bacteria None Seen /HPF (None Seen); Bilirubin Negative (Negative); Blood Negative (Negative); Epithelial Cells Rare /HPF (None Seen); Glucose, Urine Negative (Negative); Ketones 15 (Negative); Leukocyte Esterase Negative (Negative); Nitrite Negative (Negative); Ph 5.5 (4.6-8.0); Protein,Urine Dip 30 (Negative); RBC 0-2 /HPF (0-5); Specific Gravity 1.025 (1.005-1.030); Urobilinogen 0.2 mg/dL (0.2); WBC 0-2 /HPF (0-5)
[2023-04-26 16:12] LABS: ADD URINE CULTURE? NO (NO); Hyaline Casts 0-2 /LPF (0-2)
[2023-04-26 16:21] VITALS: BP 106/50; PULSE 78; O2SAT 99
== END 2023-04-26 16:42 | disposition home or self-care (01) ==
LOC: ED 14:53
DX: S29.012A Strain of muscle and tendon of back wall of thorax, initial encounter (principal); Z79.52 Long term (current) use of systemic steroids; Z28.310 Unvaccinated for COVID-19; Z72.0 Tobacco use
CPT/HCPCS: 81001; 81025; 96372; 99283; J2360; J2930; A9270-GY

== ENCOUNTER 2024-07-29 16:34 | Emergency (ER) | payer OTHER ==
[2024-07-29 16:47] VITALS: TEMP 99.2; O2SAT 99
--- NOTE | 2024-07-29 18:26 | ERPHSYRPT ---
- History of Present Illness Source: patient Exam Limitations: no limitations Patient Subjective Stated Complaint: Pt c/o of sinus pressure, cough, nausea, and diarrhea for 3 days Triage Nursing Assessment: Pt was brought to the ER by her friend, hypertensive, tachycardic, rates head pain as 8/10, pulses normal, skin n/w/d, denies chest pain, doesn't appear to be in any distress Physician History: Patient has classic symptoms of sinusitis. She has pressure in the frontal and maxillary sinuses. She does not have any fever. She has a lot of drainage its thick and purulent. It is draining down into her chest. She has had some nausea and a few loose stools as well 2. The symptoms been going on for about 5 days. She has had sinus infection in the past as this feels similar. She has no other complaints she is breathing easy and has no respiratory distress. Allergies/Adverse Reactions: No Known Drug Allergies Allergy (Verified 07/29/24 16:47) Home Medications: Lamotrigine 100 mg [lamICTAL 100MG TABLET] 100 mg PO DAILY 07/29/24 [History] Hx Tetanus, Diphtheria Vaccination/Date Given: Yes Hx Influenza Vaccination/Date Given: No Hx Pneumococcal Vaccination/Date Given: No Travel Risk - International Travel Have you traveled outside of the country in past 3 weeks: No - Emerging Infectious Disease Are you exhibiting symptoms associated with any current EIDs: Yes Symptoms: Cough: New Onset - Review of Systems Constitutional: No Symptoms Eyes: No Symptoms Respiratory: No Symptoms Cardiac: No Symptoms - Past Medical History Pertinent Past Medical History: Yes Neurological History: No Pertinent History ENT History: No Pertinent History Cardiac History: No Pertinent History Respiratory History: No Pertinent History Endocrine Medical History: No Pertinent History Musculoskeletal History: No Pertinent History GI Medical History: No Pertinent History History: No Pertinent History Psycho-Social History: Anxiety, Bipolar, Depression Female Reproductive Disorders: No Pertinent History - Past Surgical History Past Surgical History: Yes Cardiac: No Pertinent History Gastrointestinal: No Pertinent History Genitourinary: No Pertinent History Musculoskeletal: No Pertinent History Female Surgical History: No Pertinent History - Female History Hx Last Menstrual Period: 3 weeks ago Hx Now: No (unknown) - Social History Smoking Status: Current every day smoker How long have you smoked: 10 years Exposure to second hand smoke: Yes Drug Use: none, other - Social Determinants of Health Will the patient participate in the screening: Yes Do you worry about a steady place to live?: No Do you have any problems with any of the following?: No known problems In the past 12 months,have you had to go without utilities?: No Transportation Issues: No Has anyone in your support network made you feel unsafe?: No Have you or anyone in your house had to go w/o enough food: No - Nursing Vital Signs Nursing Vital Signs: Initial Vital Signs Temperature 99.2 F 07/29/24 16:40 Pulse Rate 120 H 07/29/24 16:40 Respiratory Rate 15 07/29/24 16:40 Blood Pressure 145/90 07/29/24 16:40 O2 Sat by Pulse Oximetry 99 07/29/24 16:40 Pain Scale Pain Intensity 8 - Physical Exam General Appearance: no apparent distress Eye Exam: bilateral eye: normal inspection, PERRL, EOMI Ear Exam: bilateral ear: auricle normal, canal normal, TM normal Nasal Exam: sinus tenderness (Thick purulent drainage), No active bleeding Throat Exam: normal, pharynx normal Neck Exam: normal inspection Cardiovascular/Respiratory Exam: normal breath sounds, no respiratory distress SpO2: 99 - Course Nursing assessment & vital signs reviewed: Yes - Progress Progress: unchanged Progress Note: Patient stable throughout stay. She has classic sinusitis. I went and put her on amoxicillin for 10 days and have her use Afrin nasal spray for 3. 07/29/24 18:23 - Departure Departure Disposition: Home Clinical Impression: Sinusitis Condition: Stable Critical Care Time: No Referrals: NAHUN WATTERS VACUUM CONDITIONER OPERATOR [Primary Care Provider] - Follow up/PCP as directed Instructions: Sinusitis in adults
[2024-07-29 18:31] VITALS: BP 126/75; PULSE 103; RESP 30
== END 2024-07-29 18:28 | disposition home or self-care (01) ==
LOC: ED 16:34
DX: J32.9 Chronic sinusitis, unspecified (principal); R51.9 Headache, unspecified; R09.81 Nasal congestion; R11.0 Nausea; Z79.899 Other long term (current) drug therapy; Z72.0 Tobacco use
CPT/HCPCS: 99283